=== PATIENT | male | born 1960 ===

== ENCOUNTER 2017-12-14 09:33 | Inpatient (IN) | payer OTHER ==
[~2017-12-14] VITALS: Ht 157.5 cm; Wt 113.4 kg
[2017-12-14] MEDS ORDERED: ZOLOFT20 MG/1 ML PO (09:53)
[2017-12-14] MEDS ORDERED: RANITIDINE HCL300 MG PO (09:53)
[2017-12-14] MEDS ORDERED: VERAPAMIL SR240 MG PO (09:53)
[2017-12-14] MEDS ORDERED: LAMOTRIGINE100 MG PO (09:54)
[2017-12-14] MEDS ORDERED: NEURONTIN600 MG PO (09:55)
[2017-12-14] MEDS ORDERED: MYSOLINE250 MG PO (09:55)
[2017-12-14] MEDS ORDERED: KEPPRA500 MG PO (09:56)
[2017-12-17] MEDS ORDERED: PERCOCET 5-3251 EACH PO (10:12)
[2017-12-17] MEDS ORDERED: CEFADROXIL500 MG PO (10:12)
[2017-12-17] MEDS ORDERED: XARELTO10 MG PO (10:12)
== END 2017-12-17 16:00 | DRG 481 ==
LOC: ER 09:33 → SURH 19:53
PROVIDERS: Orthopaedic Surgery
PROC: 0QR Lower Bones, Replacement (ICD-10-PCS; 2017-12-16)
PROC: 0QSB04Z Reposition Right Lower Femur with Internal Fixation Device, Open Approach (ICD-10-PCS; principal; 2017-12-16 16:15)
DX: S72.451A Displaced supracondylar fracture without intracondylar extension of lower end of right femur, initial encounter for closed fracture (principal); Q85.8 Other phakomatoses, not elsewhere classified; G40.89 Other seizures; M25.061 Hemarthrosis, right knee; W18.39XA Other fall on same level, initial encounter; Y93.89 Activity, other specified; Y92.098 Other place in other non-institutional residence as the place of occurrence of the external cause; Y99.8 Other external cause status; I10 Essential (primary) hypertension; M81.0 Age-related osteoporosis without current pathological fracture